=== PATIENT | male | born 1940 | race Caucasian/White ===

== ENCOUNTER 2023-02-09 08:49 | Day surgery (SDC) | payer BC, MEDICARE, OTHER ==
[2023-02-09] MEDS ORDERED: Midazolam 1 MG/ML 2 ML SDV IVPUSH ONE (08:50)
[2023-02-09] MEDS ORDERED: Sodium Chloride 0.9% 10 ML Syringe IVPUSH ONE (08:50)
[2023-02-09] MEDS ORDERED: Dexamethasone 4 MG/ML SDV IVPUSH ONE (08:50)
[2023-02-09] MEDS ORDERED: Cataract Ophth Solution EYELF ONE (09:15)
[2023-02-09] MEDS ORDERED: Phenylephrine 10% Ophth Soln 5 ML Bot EYELF PRN (09:15)
[2023-02-09] MEDS ORDERED: Tropicamide 1% Ophth Soln 15 ML Bottle EYELF ONE (09:15)
[2023-02-09] MEDS ORDERED: Timolol Maleate 0.5% Ophth Soln 5 ML Bottle EYELF ONE (09:15)
[2023-02-09] MEDS ORDERED: Proparacaine 0.5% Ophth Soln 15 ML Bottle EYELF ONE ×2 (09:15→10:11)
[2023-02-09] MEDS ORDERED: Sodium Chloride 0.9% 10 ML Syringe FLUSH PRN (09:15)
[2023-02-09] MEDS ORDERED: Moxifloxacin 0.5% Ophth Soln 3 ML Bottle EYELF ONE (09:15)
[2023-02-09] MEDS ORDERED: Ondansetron 4 MG/2 ML SDV IVPUSH PRN (09:15)
[2023-02-09] MEDS ORDERED: Povidone-Iodine 5% Sterile Ophth Soln 30 ML Bottle EYELF ONE ×2 (09:15→10:11)
[2023-02-09] MEDS ORDERED: Acetaminophen/Codeine 300-30 MG Tab PO PRN (09:15)
[2023-02-09] MEDS ORDERED: Acetaminophen 325 MG Tab PO PRN (09:15)
[2023-02-09] MEDS ORDERED: Diclofenac Sodium 0.1% Ophth Soln 5 ML Bottle EYELF ONE (10:12)
[2023-02-09] MEDS ORDERED: Apraclonidine 0.5% Ophth Soln 5 ML Bot EYELF ONE (10:12)
[2023-02-09] MEDS ORDERED: Balanced Salt Solution Ophth Irrig 500 ML Bottle IOCULAR ONE (10:13)
[2023-02-09] MEDS ORDERED: Lidocaine 1% 30 ML SDV ONE (10:13)
[2023-02-09] MEDS ORDERED: Dexamethasone/Neomycin/Polymyxin B Ophth Oint 3.5 GM Tube EYELF ONE (10:13)
[2023-02-09] MEDS ORDERED: Vancomycin 500 MG SDV EYELF ONE (10:14)
[2023-02-09] MEDS ORDERED: Chondroitin Sulfate/Hyaluronate Sodium Ophth Inj 0.75 ML Syringe EYELF ONE (10:14)
[2023-02-09 10:28] VITALS: PULSE 62
[2023-02-09 10:32] VITALS: BP 124/82
== END 2023-02-09 11:00 | disposition home or self-care (01) ==
LOC: DL.SDS 08:49
PROVIDERS: ATTEND Ophthalmology
DX: H25.812 Combined forms of age-related cataract, left eye (principal); I10 Essential (primary) hypertension; I25.10 Atherosclerotic heart disease of native coronary artery without angina pectoris; R73.01 Impaired fasting glucose; E66.9 Obesity, unspecified; Z87.891 Personal history of nicotine dependence; Z79.899 Other long term (current) drug therapy; Z68.32 Body mass index [BMI] 32.0-32.9, adult
CPT/HCPCS: 00142; A9270-GY; J1100; J2250; J3370; J3490; V2632

== ENCOUNTER 2023-04-27 05:57 | Day surgery (SDC) | payer MEDICARE, OTHER ==
[~2023-04-27 05:57] MED LIST: Sodium Chloride 0.9% 10 ML Syringe FLUSH PRN
[2023-04-27] MEDS ORDERED: Proparacaine 0.5% Ophth Soln 15 ML Bottle ONE (06:05)
[2023-04-27] MEDS ORDERED: Timolol Maleate 0.5% Ophth Soln 5 ML Bottle EYERT ONE (06:30)
[2023-04-27] MEDS ORDERED: Acetaminophen/Codeine 300-30 MG Tab PO PRN (06:30)
[2023-04-27] MEDS ORDERED: Ondansetron 4 MG/2 ML SDV IVPUSH PRN (06:30)
[2023-04-27] MEDS ORDERED: Sodium Chloride 0.9% 10 ML Syringe FLUSH PRN (06:30)
[2023-04-27] MEDS ORDERED: Proparacaine 0.5% Ophth Soln 15 ML Bottle EYERT ONE ×2 (06:30→07:52)
[2023-04-27] MEDS ORDERED: Phenylephrine 10% Ophth Soln 5 ML Bot EYERT PRN (06:30)
[2023-04-27] MEDS ORDERED: Cataract Ophth Solution EYERT ONE (06:30)
[2023-04-27] MEDS ORDERED: Moxifloxacin 0.5% Ophth Soln 3 ML Bottle EYERT ONE (06:30)
[2023-04-27] MEDS ORDERED: Tropicamide 1% Ophth Soln 15 ML Bottle EYERT ONE (06:30)
[2023-04-27] MEDS ORDERED: Acetaminophen 325 MG Tab PO PRN (06:30)
[2023-04-27] MEDS ORDERED: Povidone-Iodine 5% Sterile Ophth Soln 30 ML Bottle EYERT ONE ×2 (06:30→07:53)
[2023-04-27] MEDS ORDERED: Apraclonidine 0.5% Ophth Soln 5 ML Bot EYERT ONE (07:53)
[2023-04-27] MEDS ORDERED: Lidocaine 1% with EPINEPHrine 1:100,000 20 ML MDV ONE (07:53)
[2023-04-27] MEDS ORDERED: Diclofenac Sodium 0.1% Ophth Soln 5 ML Bottle EYERT ONE (07:53)
[2023-04-27] MEDS ORDERED: Dexamethasone/Neomycin/Polymyxin B Ophth Oint 3.5 GM Tube EYERT ONE (07:53)
[2023-04-27] MEDS ORDERED: Balanced Salt Solution Ophth Irrig 500 ML Bottle IOCULAR ONE (07:55)
[2023-04-27] MEDS ORDERED: Vancomycin 500 MG SDV EYERT ONE (07:56)
[2023-04-27] MEDS ORDERED: Chondroitin Sulfate/Hyaluronate Sodium Ophth Inj 0.75 ML Syringe EYERT ONE (07:56)
[2023-04-27 08:37] VITALS: BP 119/113; PULSE 56
== END 2023-04-27 08:33 | disposition home or self-care (01) ==
LOC: DL.SDS 05:57
PROVIDERS: ATTEND Ophthalmology
DX: H25.811 Combined forms of age-related cataract, right eye (principal); I10 Essential (primary) hypertension; R73.01 Impaired fasting glucose; I25.10 Atherosclerotic heart disease of native coronary artery without angina pectoris; E66.9 Obesity, unspecified; Z98.890 Other specified postprocedural states; Z68.32 Body mass index [BMI] 32.0-32.9, adult; Z79.899 Other long term (current) drug therapy; Z95.5 Presence of coronary angioplasty implant and graft; Z87.891 Personal history of nicotine dependence
CPT/HCPCS: 00142; A9270-GY; J3370; J3490; V2632